=== PATIENT | male | born 1985 | race Two or more races ===

== ENCOUNTER 2018-07-27 10:30 | Emergency (ER) | payer SELFPAY ==
[~2018-07-27] VITALS: Ht 170.2 cm; Wt 65.0 kg
[2018-07-27 10:47] VITALS: BP 163/95
[2018-07-27] MEDS ORDERED: ACETAMINOPHEN 500MG TABLET PO ONE (12:45)
== END 2018-07-27 13:33 | disposition home or self-care (01) ==
LOC: ER 10:30
DX: J06.9 Acute upper respiratory infection, unspecified (principal)
CPT/HCPCS: 71045; 99283